=== PATIENT | female | born 1980 | race Hispanic/Latino ===

== ENCOUNTER 2016-09-05 14:18 | Emergency (ER) | payer OTHER ==
[~2016-09-05] VITALS: Ht 157.5 cm; Wt 61.0 kg
[~2016-09-05 14:18] MED LIST: AC325T PO; AML5T PO; AMOX500C5 PO; ASPI-860 PO; CYCL10TA45 PO; FAMO-119 PO; HCT25T PO; HYDR-2013 PO; HYDR-3702 PO; HYDR-707 PO; LVT.05T PO; OMEP20TA33 PO; OMEP40CA3 PO; ONDAN4ODT PO; PANT40TA3 PO; PREN-51 PO; SUCR1TAB29 PO; TRAM-25 PO; no medications
--- OUTSIDE RECORDS SUMMARY | 2016-09-05 14:23 | XMS REPORT | Continuity of Care Document ---
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 Name Role Phone TOMARY MD PCP [phone] Insurance Providers Payer Name Policy Number Subscriber Name Relationship Self Pay Jeyson Anguiano 18 Self / Same As Patient Chief Complaint and Reason for Visit Chief Complaint Cardiac Complaint Reason for Visit Chest wall pain Headache Problems Medical Problems Problem Onset Date Status right knee pain 02/03/2012 Active Upper abdominal pain 01/21/2013 Resolved Fluid volume deficit 01/23/2013 Resolved Persistent vomiting 01/23/2013 Resolved Abdominal pain 03/24/2013 Resolved Colonoscopy 05/05/2013 Resolved Abdominal pain ~11/06/2013 Resolved Headache ~12/12/2013 Active Pelvic pain Unknown Resolved Abdominal pain Unknown Resolved Back pain Unknown Resolved Lumbar strain Unknown Resolved Contusion Unknown Resolved HTN (hypertension) ~02/22/2015 Active Hypertension 02/23/2015 Active Chest wall pain ~02/25/2015 Active Headache ~02/25/2015 Active Medications Medication Dose Route Sig Days/Qty Instructions Order Date Discontinued Date Status Hydrocodone Bit/Acetaminophen 1 Each ORAL EVERY 6 HOURS PRN 10 Qty 05/0801/21/13 Discontinued Hydrocodone Bit/Acetaminophen 1 - 2 Each ORAL EVERY 6 HOURS 30 Qty 01/24/13 Discontinued Ondansetron Hcl 4 Mg ORAL prn Q 4 hrs 10 Qty 01/21/13 01/24/13 Discontinued Famotidine 20 Mg ORAL TWICE A DAY 01/24/13 03/24/13 Discontinued Ondansetron Hcl 4 Mg ORAL EVERY 6 HOURS PRN 01/24/13 03/24/13 Discontinued Sucralfate 1 Gm ORAL 4X DAY BEFORE MEALS/AT BEDTIME 01/24/13 Discontinued Tramadol Hcl 1 - 2 Tab ORAL Q4-6H PRN 01/24/13 03/24/13 Discontinued Omeprazole Magnesium 20 Mg ORAL DAILY 05/05/13 07/05/14 Discontinued Aspirin 81 Mg ORAL DAILY 11/06/13 07/05/14 Discontinued Vit #76/Iron,Carb/Fa 1 Each ORAL DAILY 11/06/13 11/03/14 Discontinued Acetaminophen (Tylenol) 650 Mg ORAL EVERY 6 HOURS PRN PAIN 11/03/14 02/11/15 Discontinued [no medications] 02/11/15 02/24/15 Discontinued Acetaminophen/Hydrocodone Bitart 1-2 Tab ORAL EVERY 4HRS PRN PAIN 30 Qty 02/11/15 02/23/15 Discontinued Cyclobenzaprine HCl 10 Mg ORAL THREE TIMES A DAY PRN PAIN 15 Qty 02/23/15 Discontinued Amlodipine Besylate (Norvasc) 5 Mg ORAL DAILY 30 Qty 02/24/15 Active Hydrochlorothiazide 25 Mg ORAL DAILY 30 Qty 02/24/15 Active Pantoprazole Sod 40 Mg ORAL DAILY@07 30 Qty 02/24/15 Active Levothyroxine Sodium (Synthroid) 50 Mcg ORAL DAILY@0700 30 Qty Active Social History No social history. Hospital Discharge Instructions No hospital discharge instructions. Plan of Care Discharge Date 02/25/15 4:40am Disposition 01 HOME OR SELF-CARE Condition at Discharge Stable Instructions/Education Provided Costochondritis (ED) Acute Headache (ED) Prescriptions See Medications Section Referrals MARY ARIZA MD Additional Instructions/Education Home to bed. Rest. No changes to meds for now. Fluids, especially with the very hot weather. Follow up with PCP within 7 days. Some of your test results may not be complete prior to your leaving the Emergency Department. The Emergency Department is not authorized to give test results over the phone. Please contact the doctor's office listed in this packet of information for your final results. Follow up with your primary care physician or return to the Emergency Department for worsening or worrisome symptoms. * Emergency Department phone number: [phone], x [phone] MEDICAL RECORD If you need copies of your X-rays, call [phone]. If you need copies of your medical record, including lab results, a signed authorization for release of records will be required. A telephone call for release of Health Information is not allowed. BILLING Billing can sometimes be confusing and frustrating. To help avoid confusion in the future, please take a moment to acquaint yourself with the billing parties for services. SERVICE BILLING [employer] Emergency Room Services [facility] Physician Services [facility] [place] [facility] Patients will receive bills for services from the appropriate provider. If you have any questions about your [facility] bill, our staff will be happy to assist you. Please call [phone], and ask for the billing department. THANK YOU for choosing [facility] as your emergency care provider! Functional Status No functional status results. Allergies, Adverse Reactions, Alerts Allergen Type Severity Reaction Status Last Updated bee venom (honey bee) Allergy Unknown Active 12/12/13 CANTALOPE Allergy Mild Active 12/12/13 Immunizations No immunization records. Vital Signs Acute Vital Signs Vital Response Date/Time Temperature (Fahrenheit) 98.8 Pulse 73 bpm Respirations 16 Height 5 ft 2 in Weight 144 lb Body Mass Index 26.0 kg/m^2 Results Test Source Date Result Interp. Ref. Range Comments Absolute Band Neutrophils February 23, 2015 1:45am 0.0 # Alanine Aminotransferase (ALT/SGPT) February 23, 2015 1:45am 27 U/L L 30-65 Albumin February 24, 2015 5:45am 3.9 g/dL DN 3.4-5.0 Collected by nurse? N Albumin/Globulin Ratio February 23, 2015 1:45am 1.361 N 1.1-1.8 Alkaline Phosphatase February 23, 2015 1:45am 95 U/L N 38-126 Amylase Level March 24, 2013 1:35pm 106 U/L N 25-115 Anion Gap February 25, 2015 3:30am 14.2 MEQ/L N 3-15 Aspartate Amino Transf (AST/SGOT) February 23, 2015 1:45am 24 U/L N 15-37 BUN/Creatinine Ratio February 25, 2015 3:30am 25 H 10-20 Band Neutrophils % February 23, 2015 1:45am 0 % N 0-6 Basophils # (Auto) February 25, 2015 3:30am 0.0 10^3uL Basophils % (Manual) February 23, 2015 1:45am 0 % N 0-2 Basophils (%) (Auto) February 25, 2015 3:30am 1 % N 0-2 Blood Morphology Comment February 23, 2015 1:45am Normal NORMAL Blood Urea Nitrogen February 25, 2015 3:30am 15 mg/dL N 7-18 C-Reactive Protein February 23, 2015 1:45am 0.70 mg/dL N 0.0-0.9 Calcium Level February 25, 2015 3:30am 9.3 mg/dL N 8.8-10.8 Calcium/Ionized Calcium Ratio February 23, 2015 1:45am 3.8 mg/dL N 3.8-4.6 Calculated Osmolality February 23, 2015 1:45am 270 mosm/L L 280-300 Carbon Dioxide Level February 25, 2015 3:30am 28 mmol/L N 22-29 Chloride Level February 25, 2015 3:30am 100 mmol/L N 98-108 Creatine Kinase MB February 23, 2015 1:45am 1.0 ng/mL N 0.0-6.0 Creatinine February 25, 2015 3:30am 0.60 mg/dL N 0.6-1.2 Differential Total Cells Counted February 23, 2015 1:45am 100 Eosinophils # February 23, 2015 1:45am 0.1 # Eosinophils # (Auto) February 25, 2015 3:30am 0.1 10^3uL Eosinophils % (Manual) February 23, 2015 1:45am 1 % N 0-4 Eosinophils (%) (Auto) February 25, 2015 3:30am 1 % N 0-4 Estimat Glomerular Filtration Rate February 25, 2015 3:30am 139.3 Estimated GFR (Non- February 25, 2015 3:30am 115.1 Free Thyroxine (T4) Calculated February 23, 2015 7:20am 1.00 ng/dL N 0.78- 2.19 Specimen Comment: blood in lab or at next blood bao. Glucose Level February 25, 2015 3:30am 116 mg/dL H 70-110 Hematocrit February 25, 2015 3:30am 38.00 % N 35.00-45.00 Hemoglobin February 25, 2015 3:30am 13.2 g/dL N 12.0-15.5 Lipase March 24, 2013 1:35pm 65 U/L N 23-300 Lymphocytes # February 23, 2015 1:45am 4.8 # Lymphocytes # (Auto) February 25, 2015 3:30am 3.2 X10^3 Lymphocytes % (Manual) February 23, 2015 1:45am 59 % H 20-46 Lymphocytes (%) (Auto) February 25, 2015 3:30am 41 % N 20-46 Magnesium Level February 24, 2015 5:45am 2.1 mg/dL N 1.6-2.3 Collected by nurse? N Mean Corpuscular Hemoglobin February 25, 2015 3:30am 29.3 PG N 26.0-34.0 Mean Corpuscular Hemoglobin Concent February 25, 2015 3:30am 34.7 g/dL N 31.0-37.0 Mean Corpuscular Volume February 25, 2015 3:30am 84 FL N 80-100 Mean Platelet Volume February 25, 2015 3:30am 9.9 FL H 6.0-9.5 Metamyelocytes % February 23, 2015 1:45am 0 % N 0-1 Monocytes # November 04, 2014 5:20am 0.2 # Collected by nurse? N Monocytes # (Auto) February 25, 2015 3:30am 0.4 X10^3 Monocytes % (Manual) February 23, 2015 1:45am 7 % N 3-11 Monocytes (%) (Auto) February 25, 2015 3:30am 6 % N 3-11 GZ-Ihn-I-Type Natriuretic Peptide February 23, 2015 1:45am 48 pg/mL N 0-125 <300 ng/mL - HF unlikely Age <50 years, NT-proBNP >450 pg/mL - HF Likely Age 50-75 yrs, NT-proBNP >900 pg/mL - HF Likely Age >75 yrs, NT-proBNP >1800 - HF likely Neutrophils # February 23, 2015 1:45am 2.7 # Neutrophils # (Auto) February 25, 2015 3:30am 4.1 X10^3 Neutrophils (%) (Auto) February 25, 2015 3:30am 52 % N 51-67 Phosphorus Level February 24, 2015 5:45am 5.5 mg/dL H 2.4-4.9 Collected by nurse? N Platelet Count February 25, 2015 3:30am 350 10^3uL N 150-450 Potassium Level February 25, 2015 3:30am 3.5 mmol/L N 3.5-5.1 Red Blood Count February 25, 2015 3:30am 4.51 10^6uL N 4.00-5.00 Red Cell Distribution Width February 25, 2015 3:30am 11.8 % N 11.8-15.6 Segmented Neutrophils % February 23, 2015 1:45am 33 % L 51-67 Sodium Level February 25, 2015 3:30am 138 mmol/L N 135-150 Thyroid Stimulating Hormone (TSH) February 23, 2015 1:45am 8.95 uIU/mL H 0.46-4.68 Total Bilirubin February 23, 2015 1:45am 0.5 mg/dL N 0.1-1.0 Total Creatine Kinase February 23, 2015 1:45am 128 U/L N 30-135 Total Protein February 23, 2015 1:45am 8.5 g/dL N 6.4-8.5 Troponin I February 25, 2015 3:30am < 0.012 ng/mL 0.010-0.080 Urine Amorphous Sediment November 06, 2013 7:55pm 1+ /HPF H Collected by nurse? NUrine collection method Clean Catch Urine Bacteria February 23, 2015 2:00am 1+ /HPF Urine collection method Clean Catch Urine Bilirubin February 23, 2015 2:00am Negative Negative Urine collection method Clean Catch Urine Blood November 03, 2014 11:01pm 2+ H Negative Collected by nurse? YHas specimen been collected/obtained? Y Comment cath ua Urine Clarity February 23, 2015 2:00am Cloudy Urine collection method Clean Catch Urine Collection Type February 23, 2015 2:00am Clean catch Urine collection method Clean Catch Urine Color February 23, 2015 2:00am Yellow Urine collection method Clean Catch Urine Glucose (UA) February 23, 2015 2:00am Negative Negative Urine collection method Clean Catch Urine Ketones February 23, 2015 2:00am Negative Negative Urine collection method Clean Catch Urine Leukocyte Esterase February 23, 2015 2:00am 1+ H Negative Urine collection method Clean Catch Urine Microscopic WBC November 03, 2014 11:01pm None seen /HPF Collected by nurse? YHas specimen been collected/obtained? Y Comment cath ua Urine Mucus February 23, 2015 2:00am 1+ Urine collection method Clean Catch Urine Nitrite February 23, 2015 2:00am Negative Negative Urine collection method Clean Catch Urine Protein February 23, 2015 2:00am Negative Negative Urine collection method Clean Catch Urine RBC February 23, 2015 2:00am 2-5 /HPF Urine collection method Clean Catch Urine RBC (Auto) February 23, 2015 2:00am 2+ H Negative Urine collection method Clean Catch Urine Specific [place] February 23, 2015 2:00am 1.015 1.005-1.030 Urine collection method Clean Catch Urine Squamous Epithelial Cells February 23, 2015 2:00am 20-50 /LPF Urine collection method Clean Catch Urine Urobilinogen February 23, 2015 2:00am 0.2 mg/dL 0.2-1.0 Urine collection method Clean Catch Urine WBC February 23, 2015 2:00am 0-2 /HPF Urine collection method Clean Catch Urine pH February 23, 2015 2:00am 5.5 5.0 - 8.0 Urine collection method Clean Catch Volume Urine Centrifuged February 23, 2015 2:00am 12 ml Urine collection method Clean Catch White Blood Count February 25, 2015 3:30am 7.81 10^3uL N 4.0-11.0 Blood Culture Peripheral-:Lab Indicates After Collectio March 30, 2013 3: 30pm No Growth in 5 days Urine Culture Urine-Clean Catch November 06, 2014 2:41pm Procedures Procedure Status Date Provider(s) X-RAY EXAM L-S SPINE 2/3 VWS completed 02/11/15 URINE TEST completed 02/11/15 THER/PROPH/DIAG INJ SC/IM completed 02/11/15 EMERGENCY DEPT VISIT completed 02/11/15 completed 02/11/15 completed 02/11/15 completed 02/11/15 Encounters Encounter Location Date/Time Departed Emergency Room [facility] 02/25/15 2:41am Discharged Inpatient [facility] 02/23/15 2:50am Departed Emergency Room [facility] 02/11/15 10:23am Recent Diagnosis
--- OUTSIDE RECORDS SUMMARY | 2016-09-05 14:24 | XMS REPORT | Continuity of Care Document ---
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 * Emergency Department phone number: [phone], x [phone] MEDICAL RECORD If you need copies of your X-rays, call [phone]. If you need copies of [...] the billing parties for services. SERVICE BILLING [employer] Emergency Room Services [facility] Physician Services [facility] [place] [facility] Patients will receive bills for services from the appropriate provider. If you have any questions about your [facility] bill, our staff will be happy to assist you. Please call [phone], and ask for the billing department. THANK YOU for choosing [facility] as your emergency care provider! [...] 25, 2015 3:30am 6 % N 3-11 HS-Sca-T-Type Natriuretic Peptide February 23, 2015 1:45am 48 [...] Urine collection method Clean Catch Urine Specific [place] February 23, 2015 2:00am 1.015 1.005-1.030 Urine [...] Encounters Encounter Location Date/Time Departed Emergency Room [facility] 02/25/15 2:41am Discharged Inpatient [facility] 02/23/15 2:50am Departed Emergency Room [facility] 02/11/15 10:23am Recent Diagnosis
[2016-09-05] MEDS ORDERED: IBUPROFEN 800 MG (MOTRIN) TAB PO ONE (15:45)
[2016-09-05] MEDS ORDERED: HYDR-3702 PO (15:47)
[2016-09-05] MEDS ORDERED: AMOX875T2 PO (15:47)
[2016-09-05 20:23] VITALS: BP 134/82
== END 2016-09-05 16:04 | disposition home or self-care (01) ==
LOC: ED 14:20
DX: J02.0 Streptococcal pharyngitis (principal)
CPT/HCPCS: 87651; 99282; 99283

== ENCOUNTER 2016-09-07 17:30 | Emergency (ER) | payer OTHER ==
[~2016-09-07] VITALS: Ht 160 cm; Wt 62.8 kg
[~2016-09-07 17:30] MED LIST changes: +AMOX875T2 PO
--- OUTSIDE RECORDS SUMMARY | 2016-09-07 17:34 | XMS REPORT | Continuity of Care Document ---
Author Author [facility] Organization [facility] Address Unknown Phone Unavailable Care Team Providers Care Veterinary Manager Name Role Phone TOMARY MD PCP [phone] Insurance Providers Payer Name Policy Number Subscriber [...] worrisome symptoms. * Emergency Department phone number: [phone], x [phone] MEDICAL RECORD If you need copies of your X-rays, call [phone]. If you need copies of [...] SERVICE BILLING [employer] Emergency Room Services [facility] Physician Services [facility] [place] [facility] Patients will receive bills for services from the appropriate provider. If you have any questions about your [facility] bill, our staff will be happy to assist you. Please call [phone], and ask for the billing department. THANK YOU for choosing [facility] as your emergency care provider! Functional Status [...] 25, 2015 3:30am 6 % N 3-11 AP-Wip-R-Type Natriuretic Peptide February 23, 2015 1:45am 48 [...] Urine collection method Clean Catch Urine Specific [place] February 23, 2015 2:00am 1.015 1.005-1.030 Urine [...] Encounters Encounter Location Date/Time Departed Emergency Room [facility] 02/25/15 2:41am Discharged Inpatient [facility] 02/23/15 2:50am Departed Emergency Room [facility] 02/11/15 10:23am Recent Diagnosis
[2016-09-07 18:11] LABS: BASOPHILS % (AUTO) 1 % (0-2); EOSINOPHILS # (AUTO) 0.1 10^3uL; EOSINOPHILS % (AUTO) 1 % (0-4); LYMPHOCYTES # (AUTO) 2.4 X10^3; MEAN CORPUSCULAR HEMOGLOBIN 29.5 PG (26.0-34.0); MEAN CORPUSCULAR HGB CONC 33.9 g/dL (31.0-37.0); MEAN CORPUSCULAR VOLUME 87 FL (80-100); MEAN PLATELET VOLUME 9.7 FL (6.0-9.5); MONOCYTES # (AUTO) 0.8 X10^3; MONOCYTES % (AUTO) 10 % (3-11); NEUTROPHILS # (AUTO) 4.2 X10^3; NEUTROPHILS % (AUTO) 56 % (51-67); PLATELET COUNT 281 10^3uL (150-450); WHITE BLOOD COUNT 7.52 10^3uL (4.0-11.0)
[2016-09-07 18:48] VITALS: BP 131/90
[2016-09-07] MEDS ORDERED: cefTRIAXone 1 GM (ROCEPHIN) VIAL IM ONE (18:50)
[2016-09-07] MEDS ORDERED: LIDOCAINE PF 1% (XYLOCAINE) 2 ML VIAL INJ ONE (18:50)
== END 2016-09-07 19:01 | disposition home or self-care (01) ==
LOC: EDUNIT# 17:30 → ED 17:31
DX: J03.00 Acute streptococcal tonsillitis, unspecified (principal); R50.81 Fever presenting with conditions classified elsewhere
CPT/HCPCS: 36415; 85025; 86308; 96372; 99283; J0696; J2001; 99282

== ENCOUNTER 2016-09-29 15:54 | Emergency (ER) | payer OTHER ==
[~2016-09-29] VITALS: Ht 160 cm; Wt 63.1 kg
[2016-09-29 16:21] VITALS: BP 141/87
== END 2016-09-29 16:25 | disposition home or self-care (01) ==
LOC: ED 15:55
DX: S23.3XXA Sprain of ligaments of thoracic spine, initial encounter (principal); S29.012A Strain of muscle and tendon of back wall of thorax, initial encounter; X50.0XXA Overexertion from strenuous movement or load, initial encounter; Y93.89 Activity, other specified; Z87.891 Personal history of nicotine dependence
CPT/HCPCS: 99281; 99282